=== PATIENT | male | born 1955 | race Caucasian/White ===

== ENCOUNTER 2018-07-13 14:23 | Emergency (ER) | payer OTHER, SELFPAY ==
[2018-07-13 14:40] VITALS: BP 133/84; PULSE 98; RESP 18; TEMP 36; O2SAT 94
--- NOTE | 2018-07-13 15:09 | ED.GENADUL_ITS ---
Discharge Plan Disposition Patient Disposition: HOME Condition: Fair Discharge Details Chief Complaint: Laceration Clinical Impression: Facial laceration Reason For Visit: lac Primary Care Provider: BLANCA URBAN ED Provider: Gela Muir Home Meds and New Rx's Prescriptions: Continue bupropion HCl [Wellbutrin] 75 MG tablet 2 tab PO BID RF: 0 trazodone 100 MG tablet 50 mg PO HS RF: 0 simvastatin 5 MG tablet 5 mg PO HS RF: 0 trazodone 50 MG tablet 50 mg PO HS RF: 0 aspirin 325 MG tablet,delayed release (DR/EC) 325 mg PO RF: 0 meclizine [Antivert] 25 MG tablet 1 tab PO DAILY RF: 0 bupropion HCl [Wellbutrin] 75 MG tablet 75 mg PO RF: 0 allopurinol 300 MG tablet 300 mg PO DAILY RF: 0 methadone [Dolophine] 5 MG tablet 5 mg PO BID RF: 0 Discharge Instructions Instructions: Skin Adhesive Care (ED), Facial Laceration (ED) Additional Instructions: Please allow adhesives to come off naturally. Do not apply any ointment over this as it may cause premature break down. You may shower starting tomorrow but please do not soak wound. Please monitor for signs of infection including redness, warmth, drainage, increased pain, fever/chills. If these arise please seek care urgently once again. Please follow-up with primary care as needed Referrals: BLANCA URBAN [Primary Care Provider] - Discharge Data Discharge Date/Time-TO BE ENTERED AT DEPARTURE: 07/13/18 16:08 Medical Decision Making Patient 62-year-old male, accompanied by his , with chief complaint of laceration between his eyes. He reports a prior to arrival, he was working with a paramedial nose pliers pulling a wire when the wire slipped and he struck himself in the face with a needle nose pliers. Unknown tetanus status. He denies any loss of conscious. No visual change. His primary concern is that he is continued to bleed since the time of the incident despite continually applying pressure. At this time I see the patient, bleeding has since stopped. He has a 4 mm V-shaped laceration. The central area of tissue appears quite superficial. I feel that this will go together well with adhesive. Will cleanse the wound closed adhesive. Discussed the risk/benefits associated with this procedure as well as its pretty procedural steps with patient and his . He voiced understanding and wished to proceed Last tetanus was 2017 Procedure note: Using standard sterile technique, the wound was copiously irrigated with sterile saline and cleansed with chlorhexidine. Wound was explored to base in bloodless field. No foreign body or debris was noted. The small central flap was realigned with forceps and within layer of adhesive was applied. Patient tolerated this well. Patient I did discuss in depth that that the thin flap is so superficial and may or may not be viable at this point. He was given the option to cut this back and preferred to attempt for viability. He voices understanding in this and does know the possible outcomes as well as expected course. We discussed the signs symptoms of infection when to seek care urgently once again. Discussed care of adhesive. All his questions and concerns were addressed and he is in agreement with this plan HPI General Mode of arrival: ambulatory . Date/Time Provider Initiated Documentation: 07/13/18 15:02 . Limitations to Documentation: no limitations . Information obtained by: patient and family . History of Present Illness 62 year old M presents to the emergency department with the chief complaint of laceration, described as mild, Quality is described as aching, and is localized to the face. Patient reports no radiation. Patient started experiencing this minute(s) Patient notes no other symptoms.; denies chest pain, cough, fever/chills, headaches, nausea/vomiting, shortness of breath, syncope and weakness. Patient did receive the following treatments prior to arrival, other (has been applying pressure to wound) Related Data Home Medications Medication Instructions Recorded Confirmed bupropion HCl [Wellbutrin] 2 tab PO BID 04/16/15 07/02/17 simvastatin 5 mg PO HS 09/05/15 07/13/18 trazodone 50 mg PO HS 09/05/15 07/13/18 allopurinol 300 mg PO DAILY 06/16/17 06/16/17 aspirin 325 mg PO 06/16/17 bupropion HCl [Wellbutrin] 75 mg PO 06/16/17 meclizine [Antivert] 1 tab PO DAILY 06/16/17 07/13/18 methadone [Dolophine] 5 mg PO BID 06/16/17 07/13/18 trazodone 50 mg PO HS 06/16/17 07/13/18 Allergies Allergy/AdvReac Type Severity Reaction Status Date / Time calamine AdvReac Intermediate Skin Rash Unverified 07/13/18 14:44 General Stated Complaint: Laceration TEX: 4 Review of Systems Constitutional Reports as per HPI, Denies chills, Denies fever(s) and Denies headache(s) Eyes Reports as per HPI, Denies blurry vision, Denies change in vision and Denies eye discharge ENT Denies abnormal hearing, Denies dizziness and Denies headache(s) Cardiovascular Denies syncope Musculoskeletal Reports as per HPI and Denies abnormal gait Integumentary/Breasts Reports as per HPI Neurologic Reports as per HPI, Denies abnormal hearing, Denies abnormal movements, Denies abnormal speech, Denies abnormal gait, Denies behavioral changes, Denies dizziness, Denies syncope, Denies headache(s), Denies sensory deficit and Denies paresthesias Psychiatric Denies behavioral changes [facility] Social History Smoking/Tobacco Use Status: Former Tobacco Use Exam Const General: cooperative, healthy appearing, comfortable, no acute distress and well developed Nutritional Appearance: average body habitus and well nourished Orientation: alert and awake HENFL Head: abnormal to inspection (patient has a V-shaped incision between the eyes, more toward the left side. Not actively bleeding. No surrounding swelling, ecchymosis, erythema. ), no palpable skull fracture, no Lr's sign, no contusions, laceration, no raccoon eyes and no scalp tenderness Head images: 2 1. area of laceration Ears: hearing grossly normal bilaterally General nose exam: external nose normal and nares normal Face and sinus: normal facial exam, sinuses nontender, face symmetric, no crepitus, no ecchymosis, no edema, no fluctuance, no sinus tenderness and no tenderness Mouth: oral mucosae normal, lip normal, tongue normal, No abnormal TMJ (full ROM , no pain) and no trismus Teeth and gingiva: dentition normal Resp Effort & Inspection: normal respiratory effort, able to speak in complete sentences and no respiratory distress Cardio Rate: regular rate Rhythm: regular rhythm Skin Trauma: laceration (between the eyes as above) Neuro General: alert and awake Cognition: normal cognition Speech: speech normal Gait: normal gait Sensory Exam: no sensory deficits noted Psych Appearance: grossly normal and well kempt Mental Status: mental status grossly normal Speech and Movement: speech and movement normal Course Vital Signs Temperature 36 C L 07/13/18 14:40 Pulse 98 H 07/13/18 14:40 Respiratory Rate 18 07/13/18 14:40 Blood Pressure 133/84 07/13/18 14:40 Pulse Oximetry 94 L 07/13/18 14:40 Temperature 36 C L 07/13/18 14:40 Pulse 98 H 07/13/18 14:40 Respiratory Rate 18 07/13/18 14:40 Respiratory Effort 07/13/18 14:49 Blood Pressure 133/84 07/13/18 14:40 Pulse Oximetry 94 L 07/13/18 14:40 Oxygen Delivery Method Room Air 07/13/18 14:40 Oxygen Flow Rate 0 07/13/18 14:40 Pain Level 4 07/13/18 14:40
== END 2018-07-13 16:08 | disposition home or self-care (01) ==
PROVIDERS: Emergency Provider Physician Assistant; PCP Internal Medicine
DX: S01.81XA Laceration without foreign body of other part of head, initial encounter (principal); W27.0XXA Contact with workbench tool, initial encounter
CPT/HCPCS: 12011

== ENCOUNTER 2019-01-01 19:04 | Emergency (ER) | payer OTHER, SELFPAY ==
[2019-01-01 19:10] VITALS: BP 133/70; PULSE 91; RESP 18; TEMP 36.7; O2SAT 95
--- NOTE | 2019-01-01 19:26 | W.ED.GENAD ---
Discharge Plan Disposition Patient Disposition: HOME Condition: Improving Discharge Details Chief Complaint: RespSymp Clinical Impression: Sinusitis, URI (upper respiratory infection), Acute kidney injury Primary Care Provider: BLANCA URBAN ED Provider: Gela Muir Home Meds and New Rx's Prescriptions: New amoxicillin-pot clavulanate [Augmentin] 875-125 mg tablet 1 tab PO BID Qty: 14 RF: 0 Continued simvastatin 5 MG tablet 5 mg PO HS RF: 0 trazodone 50 MG tablet 50 mg PO HS RF: 0 aspirin 325 MG tablet,delayed release (DR/EC) 325 mg PO DAILY RF: 0 allopurinol 300 MG tablet 300 mg PO DAILY RF: 0 methadone [Dolophine] 5 MG tablet 5 mg PO BID RF: 0 Discharge Instructions Instructions: Acute Kidney Injury (GEN), Sinusitis (ED), Upper Respiratory Infection (ED) Additional Instructions: Encourage hydration. Tylenol and ibuprofen as needed for discomfort. Please take antibiotics as prescribed. Even if symptoms improve please take the entire course. He will need to be reevaluated by her primary care next week as already scheduled. At that time, your kidney function will need to be reassessed. If you develop fever/chills, increased pain, inability stay hydrated, difficulty breathing, shortness of breath or other new/worsening symptoms please seek care urgently once again. Referrals: BLANCA URBAN [Primary Care Provider] - Discharge Data Discharge Date/Time-TO BE ENTERED AT DEPARTURE: 01/01/19 22:46 Medical Decision Making Patient is 63-year-old male, accompanied by his with chief complaint of cough, fever/chills, sore throat, bilateral ear pain, sinus pain for the past 2 weeks. He reports his symptoms have progressively been worsening. Patient [facility] Tessalon Perles 4 days ago. He reports that this was unsuccessful his symptoms. Reports a T-max of 100.2 ?F. He denies any GI upset although he does report episode of emesis x1 but associates this with forceful coughing. Denies any change in bowel or bladder habits. Is chest discomfort which is worse with coughing. Reports he is bringing up green sputum. is also been ill and was recently diagnosed with pneumonia. She reports he is also having some chest discomfort which she associates primarily with cough is increasing at rest today. Feels that he is having muscle spasms in the anterior aspect of his chest patient does have a history of coronary artery disease status post CABG in 2000. On exam, patient's lungs are clear. Slightly tachycardic at 91 otherwise vital signs within normal limits. Patient is exquisitely tender over the sinuses, primarily at the maxillary sinus on the left side. Posterior oropharynx mildly erythematous. Plan to obtain chest x-ray. Also obtain EKG and baseline labs were to be given the patient's cardiac history. FINDINGS: Lungs: Mild generalized hyperexpansion and hyperlucency suggesting possible COPD. No infiltrates. Pleural space: No pleural effusion or pneumothorax. Heart/Mediastinum: Heart size normal. No mediastinal widening. Pulmonary vaculature normal. No tracheal shift. Prior median sternotomy. Mild aortic tortuosity and atherosclerotic calcification. Bones/joints: No acute osseous abnormalities are identified. IMPRESSION: 1. No acute process is evident. 2. Suspect COPD. 3. Prior median sternotomy. No signs of cardiac decompensation. EKG reviewed by Dr. Clarke. NSR rate 86. No acute abnormalities noted suggestive of ischemia White count is 12.95, creatinine is elevated 1.8, troponin is less than 0.02. Discussed the elevated creatinine with the patient. He has been elevated historically but never this high. He reports that he does not typically drink water and has been coughing quite frequently. I believe is secondary to dehydration. He is tolerating hydration at this time and is also receiving IV fluids. Patient received 1 L of fluid. We will begin him on antibiotics for sinusitis. I am concerned that he is also developing a pneumonia given his symptoms despite the x-ray not showing any evidence of pneumonia. Advised he needs to continue to encourage hydration. Advised he will need close follow-up with his primary care for his acute kidney injury and reevaluation of this. This point, as he is hydrating orally, received fluid here and seems to be improving, not feel that hospitalization is necessary for this diagnosis this time. I did discuss this with Dr. Clarke who agrees with this assessment. Patient was given strict return precautions. All his questions and concerns were addressed and he is in agreement this plan . Patient received first dose of antibiotics while here. HPI General Mode of arrival: ambulatory. Date/Time Provider Initiated Documentation: 01/01/19 19:05. Limitations to Documentation: no limitations. Information obtained by: patient, family and RN notes reviewed. HPI Narrative: Patient is a 63-year-old female presents today with chief complaint of URI symptoms. He reports symptoms have been present for the past 2 weeks. Is endorsed cough, sinus pain, sore throat. Is endorsing shortness of breath associated with coughing. Patient has history of prediabetes, hyperlipidemia, insomnia, CAD. Patient is status post CABG. Patient is accompanied by his who is currently being here for pneumonia. Related Data Home Medications Medication Instructions Recorded Confirmed simvastatin 5 mg PO HS 09/05/15 01/01/19 allopurinol 300 mg PO DAILY 06/16/17 01/01/19 aspirin 325 mg PO DAILY 06/16/17 01/01/19 methadone [Dolophine] 5 mg PO BID 06/16/17 01/01/19 trazodone 50 mg PO HS 06/16/17 01/01/19 amoxicillin-pot clavulanate 1 tab PO BID #14 tab 01/01/19 [Augmentin] Previous Rx's Medication Instructions Recorded amoxicillin-pot clavulanate 1 tab PO BID #14 tab 01/01/19 [Augmentin] Allergies Allergy/AdvReac Type Severity Reaction Status Date / Time calamine AdvReac Intermediate Skin Rash Unverified 01/01/19 19:15 General Stated Complaint: RespSymp TEX: 3 Review of Systems Constitutional Reports as per HPI, Reports chills, Reports fatigue, Reports fever(s) and Denies headache(s) Eyes Reports as per HPI, Denies eye discharge and Denies irritation ENT Reports as per HPI, Denies ear discharge, Denies otalgia, Denies headache(s), Reports nasal congestion, Reports nasal discharge, Reports sinus pain, Reports sinus pressure and Reports sore throat Cardiovascular Reports as per HPI, Reports chest pain (with cough, muscle spasm), Denies chest pain at rest, Denies syncope, Denies edema, Denies lightheadedness, Denies radiating jaw, neck or arm pain, Denies dyspnea and Reports dyspnea on exertion Respiratory Reports as per HPI, Reports chest congestion, Reports cough, Denies hemoptysis, Denies dyspnea, Reports dyspnea on exertion, Denies stridor and Denies wheezing Gastrointestinal Reports as per HPI, Denies abdominal pain, Denies change in bowel habits, Denies nausea and Denies vomiting Integumentary/Breasts Reports as per HPI and Denies rash Neurologic Reports as per HPI, Denies syncope and Denies headache(s) Endocrine Reports fatigue Allergic/Immunologic Denies wheezing [facility] Medical History Chronic back pain (Acute) Colostomy complication (Acute) Insomnia (Acute) Pre-diabetes (Acute) Gout (Chronic) High cholesterol (Chronic) Surgical History Hx of CABG (Chronic) Social History Smoking/Tobacco Use Status: Former Tobacco Use Drug use: Never Substance use type: does not use Do you feel safe in your relationship?: Yes Exam Const General: cooperative, healthy appearing, comfortable, no acute distress, well developed and well groomed Nutritional Appearance: average body habitus and well nourished Orientation: alert and awake HENNV Head: normal to inspection, normocephalic and atraumatic Ears: hearing grossly normal bilaterally, external ears normal and TM's normal bilaterally General nose exam: external nose normal and nares normal Face and sinus: normal facial exam, sinuses nontender and face symmetric Mouth: oral mucosae normal, lip normal, tongue normal, oropharynx normal and moist mucous membranes Teeth and gingiva: dentition normal Throat: posterior oropharynx normal, tonsils normal and uvula midline Eyes General: appearance normal, both eyes and all related structures Neck Neck: normal visual inspection, full ROM, no lymphadenopathy and no meningeal signs Resp Effort & Inspection: normal respiratory effort, able to speak in complete sentences and no respiratory distress Auscultation: clear to auscultation bilaterally, no rales, no rhonchi and no wheezes Cardio Rate: regular rate Rhythm: regular rhythm Heart Sounds: S1 normal and S2 normal Skin General skin exam: no rashes or lesions noted Neuro General: alert and awake Cognition: normal cognition Speech: speech normal Gait: normal gait Psych Appearance: grossly normal and well kempt Mental Status: mental status grossly normal Speech and Movement: speech and movement normal Course Vital Signs Temperature 36.7 C 01/01/19 19:10 Pulse 91 H 01/01/19 19:10 Respiratory Rate 18 01/01/19 19:10 Blood Pressure 133/70 01/01/19 19:10 Pulse Oximetry 95 01/01/19 19:10 Temperature 36.7 C 01/01/19 19:10 Temperature Source Tympanic 01/01/19 19:10 Pulse 91 H 01/01/19 19:10 Respiratory Rate 18 01/01/19 19:10 Respiratory Effort Non-Labored 01/01/19 19:20 Respiratory Depth Normal 01/01/19 19:20 Blood Pressure 133/70 01/01/19 19:10 Pulse Oximetry 95 01/01/19 19:10 End Tidal Co2 10 01/01/19 19:10
--- NOTE | 2019-01-01 20:18 | DI.RAD_ITS ---
SYMPTOM/DIAGNOSIS: COUGH, SOB PA AND LATERAL CHEST: Comparison is made with 09/05/15. The patient is again noted to be status post CABG. The heart size is normal. There is calcification at the aortic arch which appears normal in diameter. The lungs are mildly hyperinflated. No focal infiltrate, effusion or pulmonary edema is seen. IMPRESSION: No acute abnormality.
[2019-01-01 20:22] LABS: Abs Immature Grans 0.11 k/cumm (0.0-0.09); HCT 36.5 % (40.0-50.0); HGB 12.5 g/dL (13.5-17.5); Mean Corp. HGB Concentration 34.2 g/dL (32.0-36.0); Mean Corpuscular Hemoglobin 32.3 pg (27.0-33.0); Mean Corpuscular Volume 94.3 fL (80-95); Mean Platelet Volume 8.9 fL (8.0-11.0); Platelet Count 220 x1000/uL (130-400); RBC 3.87 m/cumm (4.50-6.00); RBC Distribution Width 12.8 % (11.8-14.1); White Blood Cell Count 12.95 k/cumm (4.4-10.8)
--- NOTE | 2019-01-01 20:23 | DI.VRAD_ITS ---
EXAM: XR Chest, 2 Views EXAM DATE/TIME: 01/01/2019 7:38 PM CLINICAL HISTORY: 63 years old, male; Signs and symptoms; Shortness of breath TECHNIQUE: Imaging protocol: XR of the chest, 2 views. COMPARISON: CR CHEST 2 VIEWS PA,LAT 09/05/2015 3:39 PM FINDINGS: Lungs: Mild generalized hyperexpansion and hyperlucency suggesting possible COPD. No infiltrates. Pleural space: No pleural effusion or pneumothorax. Heart/Mediastinum: Heart size normal. No mediastinal widening. Pulmonary vaculature normal. No tracheal shift. Prior median sternotomy. Mild aortic tortuosity and atherosclerotic calcification. Bones/joints: No acute osseous abnormalities are identified. IMPRESSION: 1. No acute process is evident. 2. Suspect COPD. 3. Prior median sternotomy. No signs of cardiac decompensation. Dictated and Authenticated by: Clifton Liu MD. Ordering:RACHELLE Ren MD
[2019-01-01] MEDS: Normal Saline 1,000 ML 150 ML IV (20:30)
[2019-01-01 20:41] LABS: Absolute Lymphocyte Count 2.07 k/cumm (1.2-3.4); Absolute Monocyte Count 1.55 k/cumm (0.11-0.7); Absolute Neutrophil Count 9.32 k/cumm (1.2-6.7); Atypical Lymphocytes % 2; Diff Comment Manual Differential; Polychromasia Present
[2019-01-01 21:13] LABS: ALT 44 U/L (12-78); AST 48 U/L (15-37); Albumin 3.3 g/dL (3.4-5.0); Alkaline Phosphatase 73 U/L (46-116); BUN 22 mg/dL (7-18); Bilirubin, Total 0.4 mg/dL (0.2-1.0); CREATININE 1.82 mg/dL (0.70-1.30); Calcium 8.9 mg/dL (8.5-10.1); Chloride 101 mmol/L (98-107); Estimated GFR 37.58 (mL/min/1.73m2); Glucose 117 mg/dL (70-100); Magnesium 1.9 mg/dL (1.8-2.4); Potassium 3.7 mmol/L (3.5-5.1); Sodium 136 mmol/L (136-145); Total Protein 7.5 g/dL (6.4-8.2)
[2019-01-01 21:14] LABS: Troponin I < 0.02 ng/mL (0.00-0.06)
[2019-01-01] MEDS: Amoxicillin 875/Clav. 125 TAB PO (22:33)
[2019-01-01 22:39] VITALS: BP 129/67; PULSE 83; RESP 16; O2SAT 94
== END 2019-01-01 22:46 | disposition home or self-care (01) ==
PROVIDERS: Emergency Provider Physician Assistant; PCP Internal Medicine
DX: J01.90 Acute sinusitis, unspecified (principal); J06.9 Acute upper respiratory infection, unspecified; N17.9 Acute kidney failure, unspecified
CPT/HCPCS: 36415; 80053; 93005; 96360; 96361; 99285; 71046; 83735; 84484; 85025; 93010

== ENCOUNTER 2019-03-02 15:55 | Emergency (ER) | payer MEDICARE, OTHER, SELFPAY ==
[2019-03-02 15:58] VITALS: BP 117/62; PULSE 81; RESP 16; TEMP 36.6; O2SAT 93
--- NOTE | 2019-03-02 16:13 | W.ED.GENAD ---
Discharge Plan Disposition Patient Disposition: HOME Condition: Good Discharge Details Chief Complaint: Laceration Clinical Impression: Laceration Primary Care Provider: BLANCA URBAN ED Provider: Ad Saunders Home Meds and New Rx's Prescriptions: No Action trazodone 50 MG tablet 50 mg PO HS RF: 0 methadone [Dolophine] 5 MG tablet 5 mg PO BID RF: 0 Discharge Instructions Instructions: Laceration (ED), Care For Your Absorbable Stitches (ED) Additional Instructions: Please leave the dressing on for 24 hours, then you may remove and begin cleaning the wound at least twice a day with soap and water. Continue to apply antibiotic ointment. Do not directly soak the area. Watch for any signs of infection and return if any increasing redness, swelling, pain, drainage. If you notice any worsening of your symptoms, or any new symptoms such as vomiting, diarrhea, fever, chills, shortness of breath, chest pain, numbness, weakness, or fainting , please return immediately to the emergency department for reevaluation. Please follow up with your primary care provider as soon as possible for reassessment and reevaluation. As always, it was a pleasure participating in your medical care today. Referrals: BLANCA URBAN [Primary Care Provider] - Medical Decision Making This is a pleasant 63-year-old male who presents today for evaluation of a small laceration on his left dominant hand at the base of his thumb, as well as a small area of cracked skin on the tip of his right thumb that has been present for the last month. Regards to the laceration it occurred on clean metal. His tetanus is up-to-date from 2017. The area was cleaned with chlorhexidine scrub, and then subsequently washed. The patient did not want any numbing medication, and a simple 5-0 chromic gut suture was placed for good wound edge reapproximation incomplete stasis bleeding. Dermabond was then applied over this. Patient tolerated this well. The area was then bandaged appropriately. The patient's right thumb skin crack had Dermabond applied after vigorous cleaning with chlorhexidine scrub. He tolerated this well. With no neurovascular compromise, excellent hand strength, no evidence of deep tendon issue or his function, I feel he can be safely discharged home with close follow-up with his PCP. I have extensively reviewed the treatment plan and discharge instructions with the patient. I have addressed all patient concerns at this time. The patient was made aware of what symptoms to monitor for that would warrant a return to the emergency department. Discussed the plan with the patient, they demonstrate verbal understanding and agreement with our assessment and plan at this time. HPI General Date/Time Provider Initiated Documentation: 03/02/19 15:59. HPI Narrative: This is a pleasant 63-year-old male who is [id number] who presents today for evaluation of a small laceration on his left hand between the first and second digit at the base of the first digit. It occurred roughly 1 to 2 hours ago when he cut it on a small piece of metal. His tetanus is up-to-date from 2017. He denies any numbness or tingling. Bleeding is well controlled with pressure. He also has an all small fissure in the distal tip of his right thumb, which she has been dealing with for the last month, and which she attributes to dry skin cracked skin. He denies any fever, chills, redness or other complaints. No other modifying factors. The metal that cut his finger was cleaned. Related Data Home Medications Medication Instructions Recorded Confirmed methadone [Dolophine] 5 mg PO BID 06/16/17 03/02/19 trazodone 50 mg PO HS 06/16/17 03/02/19 Allergies Allergy/AdvReac Type Severity Reaction Status Date / Time calamine AdvReac Intermediate Skin Rash Unverified 03/02/19 16:00 General Stated Complaint: Laceration TEX: 4 Review of Systems Review of Systems All systems reviewed & are unremarkable except as noted in HPI and below [facility] Social History Smoking/Tobacco Use Status: Former Tobacco Use Drug use: Never Substance use type: does not use Do you feel safe in your relationship?: Yes Exam Narrative Exam Narrative: 1.Const: Well-nourished, Well-developed, appearing stated age 2.Eyes: PERRL, no conjunctival injection, and symmetrical lids. 3.ENT: Atraumatic external nose and ears. Moist MM. Neck: Symmetric, trachea midline, No thyromegaly. 4.CVS: +S1/S2, No murmurs or gallops. Peripheral pulses 2+ and equal in all extremities. Brisk capillary refill in all extremities. 5.RESP: Unlabored respiratory effort. Clear to auscultation bilaterally. No wheezes rales or rhonchi 6.GI: Soft, Nontender/Nondistended, No hepatosplenomegaly. No guarding or rebound. 7.MSK: Normocephalic/Atraumatic, Extremities w/o deformity or ttp No cyanosis or clubbing, Normal movement of all extremities 8.Skin: There is a small laceration at the base of the left thumb just between the thumb and the second digit. Laceration is 6 mm in length, notably superficial. There is a small skin flap. Minimal active bleeding. No pulsatile bleeding. Exam distal to the laceration site demonstrates intact two-point discrimination. No evidence of tendon rupture dysfunction with normal flexion extension abduction abduction of the first second and third digit, including opposition of the thumb. The patient's right thumb demonstrates a small superficial skin crack, secondary to dried skin. No other bleeding or signs of superinfection. 9.Neuro: patient care assistant II-XII grossly intact. Sensation grossly intact, no focal neurologic deficits. 10.Psych: (AAO) x3. Appropriate mood and affect Course Vital Signs Temperature 36.6 C 03/02/19 15:58 Pulse 81 03/02/19 15:58 Respiratory Rate 16 03/02/19 15:58 Blood Pressure 117/62 03/02/19 15:58 Pulse Oximetry 93 L 03/02/19 15:58 Temperature 36.6 C 03/02/19 15:58 Temperature Source Skin 03/02/19 15:58 Pulse 81 03/02/19 15:58 Respiratory Rate 16 03/02/19 15:58 Respiratory Effort Non-Labored 03/02/19 16:02 Blood Pressure 117/62 03/02/19 15:58 Pulse Oximetry 93 L 03/02/19 15:58 Pain Level 3 03/02/19 15:58
--- NOTE | 2019-03-02 16:17 | ED.GENADUL_ITS ---
Discharge Plan Disposition Patient Disposition: HOME Condition: Good Discharge Details Chief Complaint: Laceration Clinical Impression: Laceration Primary Care Provider: BLANCA URBAN ED Provider: Ad Saunders Home Meds and New Rx's Prescriptions: No Action trazodone 50 MG tablet 50 mg PO HS RF: 0 methadone [Dolophine] 5 MG tablet 5 mg PO BID RF: 0 Discharge Instructions Instructions: Laceration (ED), Care For Your Absorbable Stitches (ED) Additional Instructions: Please leave the dressing on for 24 hours, then you may remove and begin cleaning the wound at least twice a day with soap and water. Continue to apply antibiotic ointment. Do not directly soak the area. Watch for any signs of infection and return if any increasing redness, swelling, pain, drainage. If you notice any worsening of your symptoms, or any new symptoms such as vomiting, diarrhea, fever, chills, shortness of breath, chest pain, numbness, weakness, or fainting , please return immediately to the emergency department for reevaluation. Please follow up with your primary care provider as soon as possible for reassessment and reevaluation. As always, it was a pleasure participating in your medical care today. Referrals: BLANCA URBAN [Primary Care Provider] - Medical Decision Making This is a pleasant 63-year-old male who presents today for evaluation of a small laceration on his left dominant hand at the base of his thumb, as well as a small area of cracked skin on the tip of his right thumb that has been present for the last month. Regards to the laceration it occurred on clean metal. His tetanus is up-to-date from 2017. The area was cleaned with chlorh exidine scrub, and then subsequently washed. The patient did not want any numbing medication, and a simple 5-0 chromic gut suture was placed for good wound edge reapproximation incomplete stasis bleeding. Dermabond was then applied over this. Patient tolerated this well. The area was then bandaged appropriately. The patient's right thumb skin crack had Dermabond applied after vigorous cleaning with chlorhexidine scrub. He tolerated this well. With no neurovascular compromise, excellent hand strength, no evidence of deep tendon issue or his function, I feel he can be safely discharged home with close follow-up with his PCP. I have extensively reviewed the treatment plan and discharge instructions with the patient. I have addressed all patient concerns at this time. The patient was made aware of what symptoms to monitor for that would warrant a return to the emergency department. Discussed the plan with the patient, they demonstrate verbal understanding and agreement with our assessment and plan at this time. HPI General Date/Time Provider Initiated Documentation: 03/02/19 15:59 . HPI Narrative: This is a pleasant 63-year-old male who is [id number] who presents today for evaluation of a small laceration on his left hand between the first and second digit at the base of the first digit. It occurred roughly 1 to 2 hours ago when he cut it on a small piece of metal. His tetanus is up-to-date from 2017. He denies any numbness or tingling. Bleeding is well controlled with pressure. He also has an all small fissure in the distal tip of his right thumb, which she has been dealing with for the last month, and which she attributes to dry skin cracked skin. He denies any fever, chills, redness or other complaints. No other modifying factors. The metal that cut his finger was cleaned. Related Data Home Medications Medication Instructions Recorded Confirmed methadone [Dolophine] 5 mg PO BID 06/16/17 03/02/19 trazodone 50 mg PO HS 06/16/17 03/02/19 Allergies Allergy/AdvReac Type Severity Reaction Status Date / Time calamine AdvReac Intermediate Skin Rash Unverified 03/02/19 16:00 General Stated Complaint: Laceration TEX: 4 Review of Systems Review of Systems All systems reviewed & are unremarkable except as noted in HPI and below [facility] Social History Smoking/Tobacco Use Status: Former Tobacco Use Drug use: Never Substance use type: does not use Do you feel safe in your relationship?: Yes Exam Narrative Exam Narrative: 1.Const: Well-nourished, Well-developed, appearing stated age 2.Eyes: PERRL, no conjunctival injection, and symmetrical lids. 3.ENT: Atraumatic external nose and ears. Moist MM. Neck: Symmetric, trachea midline, No thyromegaly. 4.CVS: +S1/S2, No murmurs or gallops. Peripheral pulses 2+ and equal in all extremities. Brisk capillary refill in all extremities. 5.RESP: Unlabored respiratory effort. Clear to auscultation bilaterally. No wheezes rales or rhonchi 6.GI: Soft, Nontender/Nondistended, No hepatosplenomegaly. No guarding or rebound. 7.MSK: Normocephalic/Atraumatic, Extremities w/o deformity or ttp No cyanosis or clubbing, Normal movement of all extremities 8.Skin: There is a small laceration at the base of the left thumb just between the thumb and the second digit. Laceration is 6 mm in length, notably superficial. There is a small skin flap. Minimal active bleeding. No pulsatile bleeding. Exam distal to the laceration site demonstrates intact two- point discrimination. No evidence of tendon rupture dysfunction with normal flexion extension abduction abduction of the first second and third digit, including opposition of the thumb. The patient's right thumb demonstrates a small superficial skin crack, secondary to dried skin. No other bleeding or signs of superinfection. 9.Neuro: outpatient coding specialist II-XII grossly intact. Sensation grossly intact, no focal neurologic deficits. 10.Psych: (AAO) x3. Appropriate mood and affect Course Vital Signs Temperature 36.6 C 03/02/19 15:58 Pulse 81 03/02/19 15:58 Respiratory Rate 16 03/02/19 15:58 Blood Pressure 117/62 03/02/19 15:58 Pulse Oximetry 93 L 03/02/19 15:58 Temperature 36.6 C 03/02/19 15:58 Temperature Source Skin 03/02/19 15:58 Pulse 81 03/02/19 15:58 Respiratory Rate 16 03/02/19 15:58 Respiratory Effort Non-Labored 03/02/19 16:02 Blood Pressure 117/62 03/02/19 15:58 Pulse Oximetry 93 L 03/02/19 15:58 Pain Level 3 03/02/19 15:58
== END 2019-03-02 16:25 | disposition home or self-care (01) ==
PROVIDERS: Emergency Provider Student in an Organized Health Care Education/Training Program; PCP Internal Medicine
DX: S61.412A Laceration without foreign body of left hand, initial encounter (principal); S61.012A Laceration without foreign body of left thumb without damage to nail, initial encounter; W45.8XXA Other foreign body or object entering through skin, initial encounter
CPT/HCPCS: 12001

== ENCOUNTER 2019-07-20 11:56 | Emergency (ER) | payer OTHER, MEDICARE, SELFPAY ==
[2019-07-20 12:04] VITALS: BP 133/75; PULSE 67; RESP 16; TEMP 36.7; O2SAT 96
--- NOTE | 2019-07-20 13:04 | ED.GENADUL_ITS ---
Discharge Plan Disposition Patient Disposition: HOME Condition: Stable Discharge Details Chief Complaint: Cellulitis Clinical Impression: Cellulitis Primary Care Provider: Sindy Posada ED Provider: Samson Wisdom Home Meds and New Rx's Prescriptions: New cephalexin 500 mg capsule 500 mg PO QID 7 Days Qty: 28 RF: 0 sulfamethoxazole-trimethoprim [Bactrim DS] 800-160 mg tablet 1 tab PO BID 7 Days Qty: 14 RF: 0 No Action trazodone 50 MG tablet 50 mg PO HS PRNRF: 0 methadone [Dolophine] 5 MG tablet 5 mg PO BID RF: 0 Discharge Instructions Instructions: Cellulitis (ED) Additional Instructions: 1. Drink plenty of fluids. 2. Continue all medications as prescribed. 3. Acetaminophen 1000mg every 4 hours (up to 5 time a day) and/or ibuprofen 600mg every 6 hours as needed for fever or pain. 4. Keflex 500 mg 4 times a day for 7 days. 5. Bactrim DS twice a day for 7 days. Return to the Emergency Department (ED) if your condition worsens, does not improve as expected, or for ANY other concerns. Specifically, return if you have new or uncontrolled pain, worsening fever, difficulty breathing, vomiting, or are unable to drink fluids. Discharge Data Discharge Date/Time-TO BE ENTERED AT DEPARTURE: 07/20/19 12:12 Medical Decision Making Presents with worsening erythema, pain, and tenderness at the site of her recent laceration. Exam suggestive of a progressive cellulitis. Because of Mr. Wasserman difficulty and following up as an outpatient at the NH, he was given a prescription for both Keflex and Bactrim to cover both strep and MRSA. Given usual customary return instructions at the time of discharge. Medical Records Medical records reviewed: Yes I reviewed the patient's medical records. HPI 63-year-old gentleman with a history of chronic back pain, gout, and prediabetes. Presents with increased redness, swelling, and tenderness on the dorsal aspect of his right thumb and hand. He sustained a small laceration at the metacarpal phalangeal joint. He has had no significant sequela from this injury including minimal bleeding and no significant pain or loss of motion of his thumb. However over the past few days he has had increased erythema at the laceration site and now proximally and an erythematous patch.. He notes in creased pain with active flexion extension. He otherwise denies any fever/chills. He had no loss of motion or loss of sensation distally. His tetanus status is up-to-date. General Date/Time Provider Initiated Documentation: 07/20/19 12:08 . Related Data Home Medications Medication Instructions Recorded Confirmed methadone [Dolophine] 5 mg PO BID 06/16/17 07/20/19 trazodone 50 mg PO HS PRN 06/16/17 07/20/19 cephalexin 500 mg PO QID 7 Days #28 cap 07/20/19 sulfamethoxazole-trimethoprim 1 tab PO BID 7 Days #14 tab 07/20/19 [Bactrim DS] Previous Rx's Medication Instructions Recorded cephalexin 500 mg PO QID 7 Days #28 cap 07/20/19 sulfamethoxazole-trimethoprim 1 tab PO BID 7 Days #14 tab 07/20/19 [Bactrim DS] Allergies Allergy/AdvReac Type Severity Reaction Status Date / Time calamine AdvReac Intermediate Skin Rash Unverified 03/02/19 16:00 General Stated Complaint: Cellulitis TEX: 3 Review of Systems All systems reviewed & are unremarkable except as noted in HPI and below PFSH Medical History Chronic back pain (Acute) Colostomy complication (Acute) Gout (Chronic) High cholesterol (Chronic) Insomnia (Acute) Pre-diabetes (Acute) Surgical History Hx of CABG (Chronic) Social History Smoking/Tobacco Use Status: Former Tobacco Use Drug use: Never Substance use type: does not use Do you feel safe in your relationship?: Yes Exam Narrative Exam Narrative: Nursing note and vital signs have been reviewed and noted. GENERAL: alert, active, no acute distress, well -hydrated, well-nourished HEENT: atraumatic/normocephalic, PERRLA, EOMI, conjunctiva clear, external ears/canals normal, nasal mucosa normal NECK: supple, full range of motion CARDIOVASCULAR: nl pulses, no edema PULMONARY: nl effort, no audible wheezing or stridor ABDOMEN: non-distended EXTREMITY: normal muscle tone, all joints with FROM, no deformity NUERO: normal mentation, moving all extremities, normal stance and gait, PSYCH: alert and oriented SKIN: 1 cm diagonal laceration of the dorsal aspect of the right hand at the metacarpal phalangeal joint. There is surrounding erythema at the laceration site and extending approximately to the wrist along the metacarpal. Minimal tenderness at the laceration site with no discharge or bleeding. No pain with passive flexion extension of the metacarpal phalangeal joint. Course Vital Signs Vital signs: Vital Signs Temperature 98.1 F 07/20/19 12:04 Pulse 67 07/20/19 12:04 Respiratory Rate 16 07/20/19 12:04 Blood Pressure 133/75 07/20/19 12:04 Pulse Oximetry 96 07/20/19 12:04 Temperature 98.1 F 07/20/19 12:04 Temperature Source Temporal Artery Scan 07/20/19 12:04 Pulse 67 07/20/19 12:04 Respiratory Rate 16 07/20/19 12:04 Respiratory Effort 07/20/19 12:07 Blood Pressure 133/75 07/20/19 12:04 Blood Pressure Position Sitting 07/20/19 12:04 Pulse Oximetry 96 07/20/19 12:04 Oxygen Delivery Method Room Air 07/20/19 12:04 Oxygen Flow Rate 0 07/20/19 12:04
== END 2019-07-20 12:12 | disposition home or self-care (01) ==
PROVIDERS: Emergency Provider Emergency Medicine; PCP Internal Medicine
DX: L03.113 Cellulitis of right upper limb (principal)
CPT/HCPCS: 99283

== ENCOUNTER 2019-08-05 22:06 | Emergency (ER) | payer OTHER, SELFPAY ==
[2019-08-05 22:12] VITALS: BP 170/74; PULSE 74; RESP 16; TEMP 36.7; O2SAT 97
--- NOTE | 2019-08-05 22:19 | W.ED.GENAD ---
Discharge Plan Disposition Patient Disposition: HOME Condition: Good Discharge Details Chief Complaint: AnimalBite Clinical Impression: Dog bite of eye region Primary Care Provider: Sindy Posada ED Provider: John Clarke Meds and New Rx's Prescriptions: New ciprofloxacin HCl 0.3 % Drops 2 drp OS Q4H Qty: 0 RF: 0 amoxicillin-pot clavulanate [Augmentin] 875-125 mg tablet 1 tab PO BID Qty: 7 RF: 0 Continued trazodone 50 MG tablet 50 mg PO HS PRNRF: 0 methadone [Dolophine] 5 MG tablet 5 mg PO BID RF: 0 Discharge Instructions Instructions: Animal Bite (ED) Additional Instructions: Please clean the eyelid laceration gently few times a day and place a small amount of antibiotic ointment on it. Place 2 drops of the ciprofloxacin eyedrops in the left eye every 4 hours for the next 5 days. Take Augmentin as directed. May use Tylenol of Motrin for pain if needed. Follow-up with flow specialist on Saturday for recheck. Call Saturday for appointment. Return to the ED if you develop increasing eye pain, swelling, decrease in vision, fever, other concerns. Referrals: [facility] [Outside] Medical Decision Making Patient with dog bite to the left eye region. He has left subconjunctival hemorrhage, injection, curvilinear abrasion of the cornea with dye uptake at the 8 o'clock position. There is no streaming or evidence of globe rupture. Left upper eyelid with superficial puncture laceration that does not involve the margin or the tarsal plate. With the eye closed it is well approximated and given that it is a bite we will leave open. It is cleaned by nursing and bacitracin applied. Patient is given Augmentin as this is a dog bite to the face area. He is also placed on ciprofloxacin eyedrops for the corneal abrasion. His tetanus is up-to-date. He will be referred to [facility] for follow-up on Saturday. Return to the ED for any issues over the holiday weekend. HPI General Mode of arrival: ambulatory. Date/Time Provider Initiated Documentation: 08/05/19 22:19. Limitations to Documentation: no limitations. Information obtained by: patient and RN notes reviewed. HPI Narrative: Patient presents to ED with dog bite to the left eye region. He startled his beagle which then snapped at him. He has laceration to the left upper eyelid as well as some left eye pain. His vision is a little blurry but it is present. His tetanus is up-to-date. His dog has had all of its shots. He denies injury elsewhere. Related Data Home Medications Medication Instructions Recorded Confirmed methadone [Dolophine] 5 mg PO BID 06/16/17 08/05/19 trazodone 50 mg PO HS PRN 06/16/17 08/05/19 amoxicillin-pot clavulanate 1 tab PO BID #7 tab 08/05/19 [Augmentin] ciprofloxacin HCl 2 drp OS Q4H #0 ml 08/05/19 Previous Rx's Medication Instructions Recorded amoxicillin-pot clavulanate 1 tab PO BID #7 tab 08/05/19 [Augmentin] ciprofloxacin HCl 2 drp OS Q4H #0 ml 08/05/19 Allergies Allergy/AdvReac Type Severity Reaction Status Date / Time calamine AdvReac Intermediate Skin Rash Unverified 08/05/19 22:15 General Stated Complaint: AnimalBite TEX: 3 Review of Systems Eyes Eyes: Reports blurry vision, Denies change in vision, Denies loss of vision and Reports eye pain Integumentary/Breasts Skin/Breast: Reports wounds Neurologic Neurologic: Denies loss of vision [facility] Medical History Chronic back pain (Acute) Gout (Chronic) High cholesterol (Chronic) Insomnia (Acute) Pre-diabetes (Acute) Surgical History Hx of CABG (Chronic) S/P colectomy (Acute) Social History Smoking/Tobacco Use Status: Former Tobacco Use Drug use: Never Substance use type: does not use Do you feel safe in your relationship?: Yes Exam Const General: cooperative, comfortable and no acute distress Orientation: alert and oriented x3 HENMT Face and sinus: no edema, laceration (left upper eyelid) and no tenderness Eyes Periorbital: periorbital findings normal Eyelids: eyelid abnormality left upper eyelid laceration (superficial about 0.5 cm in size) not involving eyelid margin; not involving the lacrimal puncta and not involving the tarsal plate Conjunctivae: conjunctival abnormality left conjunctival injection and subconjunctival hemorrhage Sclera: scleral abnormality left scleral injection Cornea: corneas abnormal on the left fluorescein used and abrasion at the following clock position (8) Pupils: PERRL EOM: EOM intact bilaterally Course Vital Signs Vital signs: Vital Signs Temperature 98.1 F 08/05/19 22:12 Pulse 74 08/05/19 22:12 Respiratory Rate 16 08/05/19 22:12 Blood Pressure 170/74 H 08/05/19 22:12 Pulse Oximetry 97 08/05/19 22:12 Temperature 98.1 F 08/05/19 22:12 Temperature Source Temporal Artery Scan 08/05/19 22:12 Pulse 74 08/05/19 22:12 Respiratory Rate 16 08/05/19 22:12 Blood Pressure 170/74 H 08/05/19 22:12 Blood Pressure Position Supine 08/05/19 22:12 Pulse Oximetry 97 08/05/19 22:12 Oxygen Delivery Method Room Air 08/05/19 22:12 Oxygen Flow Rate 0 08/05/19 22:12 Pain Level 4 08/05/19 22:12
[2019-08-05] MEDS: Amoxicillin 875/Clav. 125 TAB PO (22:50)
[2019-08-05] MEDS: Ciprofloxacin 0.3% 2.5 ML BTL OS (22:50)
[2019-08-05] MEDS: Amox. 875/Clav. 125, 2 TABS/BTL 1 TAB PO (23:04)
[2019-08-05] MEDS: Fluorescein STRIPS 100/BOX 1 MG (23:09)
--- NOTE | 2019-08-06 10:02 | NUR.NOTE ---
Nursing Note: 08/06/19 spoke with [facility] Officer David De La Cruz. He has the patient information. Kayleigh Nuñez.
--- NOTE | 2019-08-11 15:06 | NUR.NOTE ---
Animal bite reported to [facility] Health Officer, tried to fax to fax form to Business Office Coordinator...fax machine not working, mailed copy.Nursing Note:
== END 2019-08-05 23:00 | disposition home or self-care (01) ==
PROVIDERS: Emergency Provider Emergency Medicine; PCP Internal Medicine
DX: S01.152A Open bite of left eyelid and periocular area, initial encounter (principal); S05.02XA Injury of conjunctiva and corneal abrasion without foreign body, left eye, initial encounter; W54.0XXA Bitten by dog, initial encounter; H11.32 Conjunctival hemorrhage, left eye
CPT/HCPCS: 99283

== ENCOUNTER 2019-09-29 14:16 | Outpatient (CLI) | payer MEDICARE, OTHER, SELFPAY ==
--- NOTE | 2019-09-29 13:44 | DI.RAD_ITS ---
EXAM: XR SHOULDER LT COMPLETE 2+V CLINICAL HISTORY: Pain TECHNIQUE: COMPARISON: No exams were available for comparison FINDINGS: Two views were obtained. Cartilaginous joint space of the glenohumeral joint appears fairly well danny ntained. There is mild inferior marginal spurring of the glenoid. Minimal calcific radiodensity damion ears to lie adjacent to the greater tuberosity of the humerus. Mild hypertrophic degenerative change s of the AC joint noted. IMPRESSION: Mild degenerative changes as described above.
== END 2019-09-29 14:36 ==
PROVIDERS: PCP Family Medicine; Referring Provider Internal Medicine; Visit Provider Student in an Organized Health Care Education/Training Program
DX: S46.012A Strain of muscle(s) and tendon(s) of the rotator cuff of left shoulder, initial encounter; W00.0XXA Fall on same level due to ice and snow, initial encounter; M75.52 Bursitis of left shoulder; M75.42 Impingement syndrome of left shoulder; M75.22 Bicipital tendinitis, left shoulder; M54.12 Radiculopathy, cervical region; M75.02 Adhesive capsulitis of left shoulder
CPT/HCPCS: 99204; 99215; 73030

== ENCOUNTER 2019-10-01 09:27 | Outpatient (CLI) | payer MEDICARE, SELFPAY ==
--- NOTE | 2019-10-01 13:55 | DI.MRI_ITS ---
EXAM: MR UPPER JOINT LT WO CLINICAL HISTORY: LEFT TRAUMATIC SHOULDER STIFFNESS, WEAKNESS, PAIN, M75.52, BURSITIS, LT SHOULDER, M75.22 BICIPITAL TENDINITIS, LT SHOULDER. TECHNIQUE: Multiplanar multisequence MRI was performed. COMPARISON: XR SHOULDER LT COMPLETE 2+V from 09/29/2019 FINDINGS: Supraspinatus tendon: There is a partial-thickness bursal surface tear of the supraspinatus tendon at its insertion onto the greater tuberosity. Infraspinatus tendon: There is hyperintense signal seen in the infraspinatus tendon at its insertion site suspicious for a partial tear. Teres minor tendon: Intact. Subscapularis tendon: Hyperintense signal is seen within a portion of the superior supraspinatus tend on consistent with a partial tear. Biceps tendon: Intact. Glenoid labrum: Intact. Glenohumeral joint: Articular cartilage is unremarkable. Small amount of fluid in the subacromial-subdeltoid bursa. Small amount of fluid in the subcoracoid bursa. Bones: Hypertrophic changes seen at the acromioclavicular joint. Findings could suggest an occult fr acture or avascular necrosis. Coracoclavicular ligament: Mild hyperintense signal seen within the ligament. This may represent a sprain. Muscles: No significant muscular fatty atrophy. IMPRESSION: 1. Partial-thickness bursal surface tear of the supraspinatus tendon. 2. Question of a partial tear in the infraspinatus tendon. 3. Hyperintense signal seen in the superior aspect of the supraspinatus tendon consistent with a part ial tear. 4. Coracoclavicular ligament sprain.
== END 2019-10-01 09:47 ==
PROVIDERS: PCP Family Medicine; Visit Provider Student in an Organized Health Care Education/Training Program
DX: M25.512 Pain in left shoulder (principal); M75.52 Bursitis of left shoulder; M75.42 Impingement syndrome of left shoulder; M75.102 Unspecified rotator cuff tear or rupture of left shoulder, not specified as traumatic; S46.012A Strain of muscle(s) and tendon(s) of the rotator cuff of left shoulder, initial encounter
CPT/HCPCS: 73221

== ENCOUNTER → 2019-10-06 12:44 | Outpatient (BNVA) | payer MEDICARE, OTHER, SELFPAY | PROVIDERS: PCP Family Medicine; Referring Provider Family Medicine; Visit Provider Student in an Organized Health Care Education/Training Program | DX: S46.012D Strain of muscle(s) and tendon(s) of the rotator cuff of left shoulder, subsequent encounter (principal); S43.432D Superior glenoid labrum lesion of left shoulder, subsequent encounter; W22.8XXD Striking against or struck by other objects, subsequent encounter | CPT/HCPCS: 99215 ==

== ENCOUNTER 2019-10-15 06:03 | Day surgery (SDC) | payer MEDICARE, OTHER, SELFPAY ==
[2019-10-15] VITALS (9 sets, daily range): BP systolic 81–139; BP diastolic 44–90; PULSE 59–70; RESP 14–22; TEMP 36.6–37; O2SAT 94–95
[2019-10-15] MEDS: Lactated Ringers 1,000 ML 100 ML IV ×2 (06:47→11:47)
[2019-10-15] MEDS: ceFAZolin 2 GM/50 ML BAG IVPB (07:33)
--- NOTE | 2019-10-15 10:04 | W.PM.DSUDISC ---
Discharge Plan Disposition Patient Disposition: HOME Condition: Stable Discharge Details Reason For Visit: Left shoulder surgery Attending Provider: Mando Pike Primary Care Provider: Kodak Self Home Meds and New Rx's Prescriptions: New naproxen 250 mg tablet 250 - 500 mg PO BID PRN (Reason: pain, moderate) Qty: 60 RF: 0 oxycodone 5 mg tablet 5 - 10 mg PO Q4H PRN (Reason: moderate to severe pain) Qty: 22 RF: 0 Continued aspirin 325 mg tablet,delayed release (DR/EC) 325 mg PO DAILY RF: 0 allopurinol 300 mg tablet 300 mg PO DAILY RF: 0 multivitamin [Daily Multi-Vitamin] Tablet 1 tab PO DAILY RF: 0 vitamin B complex Tablet 1 tab PO DAILY RF: 0 trazodone 50 MG tablet 50 mg PO HS PRNRF: 0 methadone [Dolophine] 5 MG tablet 5 mg PO BID RF: 0 Discharge Instructions Additional Instructions: Surgery: Shoulder arthroscopy with rotator cuff repair (subscapularis only), arthroscopic biceps tenodesis, extensive debridement, subacromial decompression, and arthroscopic distal clavicle excision Activity: You should keep your arm at your side in a neutral position at all times except for physical therapy. Do not try to lift or raise your arm using your own muscles. You should use the sling whenever you are out of the house. You may have to adjust the abduction pillow or remove it for comfort. At home it is best to remove the sling and rest the arm on a pillow at your side or support the operative side with your other hand. You may allow the arm to dangle at your side. A physical therapy prescription will be provided separately today. Prescriptions: Resume home dose Aspirin 325 mg daily to prevent a blood clot starting tomorrow morning Resume home Methadone medication for chronic pain Naproxen 250 mg take 1-2 every 12 hours with a meal as needed for moderate pain Oxycodone 5 mg take 1-2 every 4-6 hours as needed for severe pain You may use [id number] Tylenol (acetaminophen) as needed for mild pain. These pain medications may be taken all at once or in different combinations as needed. Also, recommend Colace (docusate) as a stool softener as surgery and pain medicine cause constipation. Dressings: Leave dressing in place for 2-3 days. May then remove and leave open to air or cover incisions with Band-Aids. May shower after 5 days. Follow-up: 10-[address] Pike Please call the office during business hours with any questions or concerns. Let us know right away if you develop any redness, drainage, fevers, chest pain, or trouble breathing. Do not drink alcohol or drive for at least 24 hours after anesthesia. Referrals: Mando Pike MD [ [facility] STAFF PHYSICIAN] - DS: Diagnosis Discharge Diagnosis (1) Left rotator cuff tear: Status: Acute (2) Bursitis of left shoulder: Status: Acute (3) Impingement syndrome of left shoulder: Status: Acute (4) Tendinitis of long head of biceps brachii of left shoulder: Status: Acute (5) SLAP lesion of left shoulder: Status: Acute (6) Arthritis of left acromioclavicular joint: Status: Acute
--- NOTE | 2019-10-15 10:26 | W.PM.OP ---
Date of service: 10/15/19 Time of Service: 10:05 Operative Note Operative Note DATE OF PROCEDURE: 10/15/19 PRE-OP DIAGNOSIS: Left: 1. Rotator cuff tear 2. LHB tendinopathy 3. Bursitis 4. Impingement 5. SLAP tear 6. AC joint arthritis POST-OP DIAGNOSIS: same PROCEDURE: Left: 1. Extensive debridement, CPT# 41818. This involved using arthroscopic hand instruments, power instruments, and radiofrequency instruments to debride areas of labral tearing, synovitis, and chondromalacia within the glenohumeral joint anteriorly and posteriorly. 2. Arthroscopic biceps tenodesis, CPT# 71718. This involved arthroscopically suturing and reattaching the long head of the biceps tendon to the proximal humerus at the superior margin of the bicipital groove with a suture anchor at the correct tension. 3. Subacromial decompression with partial acromioplasty, CPT# 36882. This involved using arthroscopic power instruments and a radiofrequency wand to complete a bursectomy and remove bone spurs on the undersurface of the acromion. 4. Rotator cuff repair, CPT# 27165. This involved repair of the subscapularis using an anchor and suture to reattach the rotator cuff back to the footprint of the lesser tuberosity. 5. Arthroscopic distal clavicle excision, CPT# 33302. This involved arthroscopically exposing the underside of the acromioclavicular joint, smoothed out bone spurs, and using a priyanka to remove approximately 5 mm of the distal clavicle so there was no bone left engaging the acromion. The assistant inventory manager was medically required in order to help assist in techniques above, which require positioning the arm, holding the arthroscope, and manipulating 2 to 4 instruments and sutures at the same time. This cannot be done without the help of an experienced assistant inventory manager. SURGEON: Mando Pike PHOTOCOMPOSITION KEYBOARD OPERATOR: Gypsy Dowling ANESTHESIA: GETA and regional PATHOLOGY: none sent COMPLICATIONS: None Patient was transported to: PACU Patient's condition: stable Implants: Arthrex: 4.75mm SwiveLocks x 1 used for both the subscapularis repair and the arthroscopic biceps tenodesis Indications: The patient was diagnosed with the above conditions and appropriately indicated for surgical intervention. Please see complete medical record for details. Findings: Exam under anesthesia: Limited forward flexion to approximately 135 degrees. The left shoulder was gently and steadily manipulated and achieved nearly symmetric greater than 155 degree forward flexion. Symmetric internal rotation external rotation. Glenohumeral joint: Anterior and posterior synovitis. Superior SLAP tear and anterior labral fraying tearing. Small upper border subscapularis tear and biceps tendinitis. Intact articular sided supraspinatus infraspinatus. Mild chondromalacia about the biceps. Subacromial space: Moderate bursitis. Largely intact bursal rotator cuff. Moderate undersurface acromion bone spur. Large undersurface acromioclavicular joint bone spur and arthrosis. Procedure Description: The patient was taken to the operating room and transferred to the operating room table. General anesthesia was induced. While under anesthesia, bilateral shoulders were examined. The patient was positioned in the beachchair position. All bony prominences were well-padded. Preoperative antibiotics were administered. The shoulder was prepped and draped in the usual sterile fashion. The correct patient, procedure, and side of the procedure were all verified prior to incision. Starting through the posterior portal a standard complete diagnostic arthroscopy was performed of the glenohumeral joint including inspection of the long head of the biceps, anterior and superior labrum, subscapularis tendon, supraspinatus and infraspinatus tendons, and axillary recess. The glenoid and humeral head cartilage as well as the posterior labrum were inspected from an anterior viewing portal. Significant findings noted above. An all-arthroscopic suprapectoral biceps tenodesis was performed through an anterior portal using a Loop N Tack method with a SutureTape FiberLink cinched around and through the tendon. The biceps was tenotomized from the labrum and fixated with a suture anchor at the superior margin of the bicipital groove with the superior margin subscapularis tendon tear repair suture, which had been prepared also also through the anterior portal using a 1 portal technique to pass a suture tape FiberLink through the upper margin of the sub-scapularis. Both tenodesis and subscapularis repair were taken through a range of motion probed and found to have good integrity without blocking external rotation. Starting through the posterior portal, the arthroscope was directed into the subacromial space. A lateral 50 yard line lateral portal was created. A combination of power instruments and a radiofrequency ablator were used to debride bursitis anteriorly, posteriorly, and laterally as well as expose and smooth bone spurring on the undersurface of the acromion. The coracoacromial was partially released. The bursectomy was completed viewing laterally and working from posteriorly and the rotator cuff was thoroughly inspected with findings noted above. The bursal sided rotator cuff had some thinning and fraying and small areas but no true structural tear. The anterior portal was redirected towards the undersurface of the AC joint. Viewing from the lateral 50 yard line portal a shaver and electrocautery device were used to clear soft tissue from the undersurface of the AC joint. A priyanka was then inserted and used to remove the distalmost 5 mm of the distal clavicle. Care was taken to alternate between working through the anterior portal and viewing through the anterior portal to ensure that proper amount of bone was removed and there was no engaging bone left behind especially superiorly. The shoulder was drained of arthroscopic fluid. All portal sites were copiously irrigated. These incisions were closed using 3-0 Monocryl in a buried fashion, covered with Mastisol, Steri-Strips, Xeroform, dry gauze, and ABDs. The dressings were covered and secured with Medipore tape. The operative extremity was placed into a sling for immobilization. The patient awoke from anesthesia without complication and was transferred to the recovery room in a stable condition.
[2019-10-15] MEDS: Ketorolac 30 MG/ML VIAL IVP (11:10)
[2019-10-15] MEDS: oxyCODONE 5 MG TAB PO (12:24)
== END 2019-10-15 13:35 | disposition home or self-care (01) ==
PROVIDERS: PCP Family Medicine; Visit Provider Student in an Organized Health Care Education/Training Program
PROC: (CPT 29827; principal; 2019-10-15 07:30)
PROC: (CPT 23430; 2019-10-15 07:30)
PROC: (CPT 23120; 2019-10-15 07:30)
DX: S46.012A Strain of muscle(s) and tendon(s) of the rotator cuff of left shoulder, initial encounter (principal); S43.432A Superior glenoid labrum lesion of left shoulder, initial encounter; W00.0XXA Fall on same level due to ice and snow, initial encounter; W22.8XXS Striking against or struck by other objects, sequela; M65.812 Other synovitis and tenosynovitis, left shoulder; M75.52 Bursitis of left shoulder; M75.42 Impingement syndrome of left shoulder; M19.012 Primary osteoarthritis, left shoulder; M94.212 Chondromalacia, left shoulder; G89.18 Other acute postprocedural pain; M54.12 Radiculopathy, cervical region; G89.29 Other chronic pain; Z79.891 Long term (current) use of opiate analgesic; I25.10 Atherosclerotic heart disease of native coronary artery without angina pectoris; Z95.1 Presence of aortocoronary bypass graft; Z79.82 Long term (current) use of aspirin
CPT/HCPCS: 29827; 29828; 29826; 29824; 29823; 76942; 99211; J0690; J1100; J1885; J2250; J2370; J2405

== ENCOUNTER → 2019-10-27 12:46 | Outpatient (BNVA) | payer MEDICARE, OTHER, SELFPAY | PROVIDERS: PCP Family Medicine; Referring Provider Family Medicine; Visit Provider Student in an Organized Health Care Education/Training Program | DX: S46.012D Strain of muscle(s) and tendon(s) of the rotator cuff of left shoulder, subsequent encounter (principal); S43.432D Superior glenoid labrum lesion of left shoulder, subsequent encounter; X58.XXXD Exposure to other specified factors, subsequent encounter; M75.52 Bursitis of left shoulder; M75.42 Impingement syndrome of left shoulder; M75.22 Bicipital tendinitis, left shoulder; M75.02 Adhesive capsulitis of left shoulder; M19.012 Primary osteoarthritis, left shoulder ==

== ENCOUNTER → 2019-12-03 07:50 | Outpatient (BNVA) | payer MEDICARE, OTHER, SELFPAY | PROVIDERS: PCP Family Medicine; Referring Provider Family Medicine; Visit Provider Student in an Organized Health Care Education/Training Program | DX: S46.012D Strain of muscle(s) and tendon(s) of the rotator cuff of left shoulder, subsequent encounter (principal); S43.432D Superior glenoid labrum lesion of left shoulder, subsequent encounter; W00.0XXD Fall on same level due to ice and snow, subsequent encounter; W22.8XXD Striking against or struck by other objects, subsequent encounter; M75.52 Bursitis of left shoulder; M75.42 Impingement syndrome of left shoulder; M75.22 Bicipital tendinitis, left shoulder; M75.02 Adhesive capsulitis of left shoulder; M19.012 Primary osteoarthritis, left shoulder; M54.12 Radiculopathy, cervical region; G89.18 Other acute postprocedural pain ==

== ENCOUNTER → 2020-02-03 08:16 | Outpatient (BNVA) | payer MEDICARE, OTHER, SELFPAY | PROVIDERS: PCP Family Medicine; Referring Provider Family Medicine; Visit Provider Student in an Organized Health Care Education/Training Program | DX: S46.012D Strain of muscle(s) and tendon(s) of the rotator cuff of left shoulder, subsequent encounter (principal); S43.432D Superior glenoid labrum lesion of left shoulder, subsequent encounter; X58.XXXD Exposure to other specified factors, subsequent encounter; M75.52 Bursitis of left shoulder; M75.42 Impingement syndrome of left shoulder; M75.22 Bicipital tendinitis, left shoulder; M75.02 Adhesive capsulitis of left shoulder; M19.012 Primary osteoarthritis, left shoulder; M54.12 Radiculopathy, cervical region | CPT/HCPCS: 99213 ==

== ENCOUNTER 2020-04-05 03:35 | Outpatient (CLI) | payer OTHER, SELFPAY ==
[2020-04-05 12:13] LABS: HCT 40.6 % (40.0-50.0); HGB 14.3 g/dL (13.5-17.5); MCH 33.3 pg (27.0-33.0); MCHC 35.2 % (32.0-36.0); MCV 94.4 fL (80-95); MPV 9.8 fL (8.0-11.0); Platelet Count 157 10^3/uL (130-400); WBC 8.25 10^3/uL (4.4-10.8)
[2020-04-05 12:42] LABS: ALT 105 U/L (16-63); AST 89 U/L (15-37); Albumin 3.8 g/dL (3.4-5.0); Alkaline Phosphatase 73 U/L (46-116); Anion Gap 9.6 mmol/L (3-11); BUN 18 mg/dL (7-18); Bilirubin, Total 0.4 mg/dL (0.2-1.0); CO2 27.4 mmol/L (21.0-32.0); CREATININE 1.45 mg/dL (0.70-1.30); Calcium 9.4 mg/dL (8.5-10.1); Chloride 102 mmol/L (98-107); Estimated GFR 48.69 (mL/min/1.73m2); Glucose 117 mg/dL (74-106); Potassium 4.1 mmol/L (3.5-5.1); Sodium 139 mmol/L (136-145); Total Protein 7.6 g/dL (6.4-8.2)
[2020-04-05 14:49] LABS: RDW-SD 44.6 fL
== END 2020-04-05 03:55 ==
PROVIDERS: PCP Family Medicine
DX: M45.0 Ankylosing spondylitis of multiple sites in spine (principal)
CPT/HCPCS: 36415; 80053; 85027

== ENCOUNTER 2020-04-13 08:30 | Outpatient (CLI) | payer MEDICARE, SELFPAY | END 2020-04-13 08:50 | PROVIDERS: PCP Family Medicine; Visit Provider Student in an Organized Health Care Education/Training Program | DX: M75.52 Bursitis of left shoulder (principal); M75.42 Impingement syndrome of left shoulder; M19.012 Primary osteoarthritis, left shoulder; Z47.89 Encounter for other orthopedic aftercare | CPT/HCPCS: 99213 ==